=== PATIENT | female | born 1975 | race African-American/Black ===

== ENCOUNTER 2020-07-30 14:49 | Emergency (ER) | payer BC ==
[~2020-07-30] VITALS: Ht 177.8 cm; Wt 84.0 kg
[2020-07-30 14:50] VITALS: BP 133/85
[2020-07-30] MEDS ORDERED: LIDOCAINE 2%/EPI 1:100,000 20 ML VIAL. INJ ONE (15:00)
[2020-07-30] MEDS ORDERED: LIDOCAINE 2%/EPI 1:100,000 20 ML VIAL. ONE (15:08)
--- NOTE | 2020-07-30 15:28 | ED.ADGEN ---
Past Medical History Past Medical History: Hypertension Past Surgical History: No Surgical History Smoking Status: Never Smoker Alcohol Use: None General Adult EDM: Chief Complaint: FOREIGN BODY HPI: HPI: Patient is a 44 year old brought in by ambulance for a splinter in her left lateral ankle. Patient states she was turning and rubbed her foot against a wooden pallet when the splinter embedded in her foot. Is overlying the lateral malleolus and through and through. Total length of the splinter about 2 cm with about 80% of the length buried beneath the skin. Patient states her last tetanus shot was about 5 years ago. Otherwise been well denies any other injuries. Review of Systems: Review of Systems: All other systems within normal limits except for as noted in the HPI Current Medications: Current Medications Medications (Trade) Dose Ordered Sig/Kehinde Start Time Stop Time Status Last Admin Dose Admin Lidocaine/ Epinephrine (LIDOCAINE 2%-EPI 1:100,000 multi-dose) 20 ml 1X ONCE 07/30/20 15:00 07/30/20 15:01 UNV Physical Exam: PE: Constitutional: Well developed, well nourished, no acute distress, non-toxic appearance. [] HENT: Normocephalic, atraumatic, bilateral external ears normal, nose normal. [] Eyes: PERRLA, conjunctiva normal, no discharge. [] Neck: No rigidity, supple, no stridor. [] Cardiovascular: Regular rate and rhythm, brisk cap refill [] Lungs & Thorax: Non labored symmetric respirations, no tachypnea or respiratory distress [] Abdomen: Soft, nondistended. Skin: Warm, dry, no erythema, no rash. Foreign body through left ankle as described in HPI [] Back: Unremarkable Extremities: No deformities, range of motion grossly intact, no lower extremity edema [] Neurologic: Alert and oriented X 3, no focal deficits noted. [] Psychologic: Affect normal, judgement normal, mood normal. [] Current Patient Data: Vital Signs: Vital Signs Date Time Temp Pulse Resp B/P (MAP) Pulse Ox O2 Delivery O2 Flow Rate FiO2 07/30/20 14:50 98.9 86 16 133/85 (101) 98 Room Air 98.9 EKG: EKG: [] Heart Score: C/O Chest Pain: N/A Risk Factors: Risk Factors: DM, Current or recent (<one month) smoker, HTN, HLP, family history of CAD, obesity. Risk Scores: Score 0 - 3: 2.5% MACE over next 6 weeks - Discharge Home Score 4 - 6: 20.3% MACE over next 6 weeks - Admit for Clinical Observation Score 7 - 10: 72.7% MACE over next 6 weeks - Early Invasive Strategies Radiology/Procedures: Radiology/Procedures: Foreign body removal procedure: Area anesthetized with 1 cc of 2% lidocaine with epinephrine. A 0.25 cm incision was made on the anterior aspect of the foreign body at the malleolus to facilitate removal. Splinter was wrapped with forceps and removed. Patient tolerated procedure well without complications [] Course & Med Decision Making: Course & Med Decision Making Pertinent Labs and Imaging studies reviewed. (See chart for details) [] Dragon Disclaimer: Dragon Disclaimer: This electronic medical record was generated, in whole or in part, using a voice recognition dictation system. Departure Departure Impression: Primary Impression: Foreign body of ankle, left, superficial Disposition: 01 DC HOME SELF CARE/HOMELESS Condition: STABLE Patient Instructions: MIRYAM Yates MD Jul 30, 2020 15:28
== END 2020-07-30 15:45 | disposition home or self-care (01) ==
LOC: ER 14:49
DX: S90.552A Superficial foreign body, left ankle, initial encounter (principal); I10 Essential (primary) hypertension; W45.8XXA Other foreign body or object entering through skin, initial encounter; Y93.89 Activity, other specified; Y92.89 Other specified places as the place of occurrence of the external cause; Y99.8 Other external cause status
CPT/HCPCS: 10120; 99285